=== PATIENT | male | born 1990 | race Caucasian/White ===

== ENCOUNTER 2017-08-12 23:39 | Inpatient (IN) | payer OTHER ==
[2017-08-13] MEDS ORDERED: ISOVUE-370 76% 100ML VIAL (Q9967) As Ordered (03:39)
[2017-08-13] MEDS: ONDANSETRON 4MG/2ML VIAL (J2405) IV ×3 (03:56→22:27)
[2017-08-13] MEDS: NS 1,000 ML IV (03:56)
[2017-08-13] MEDS: MORPHINE 4 MG/ML 1ML VIAL/SYRINGE (J2270) IV ×3 (03:56→21:15)
[2017-08-13 04:03] LABS: BASO % 0.1 % (0.0-1.0); HEMATOCRIT 48.2 % (42.0-52.0); HEMOGLOBIN 17.2 g/dl (13.5-17.5); IMMATURE GRANULOCYTE % 0.6 % (0-3.0); LYMPH # 1.1 10^3/uL (1.5-6.5); LYMPH % 5.6 % (24.0-44.0); MEAN CORPUSCULAR HGB CONC 35.7 g/dl (32.0-36.5); MONO # 0.6 10^3/uL (0.0-0.8); MONO % 3.2 % (0.0-5.0); NEUTROPHILS # 17.2 10^3/uL (1.8-7.7); NEUTROPHILS % 90.5 % (36.0-66.0); PLATELET COUNT, AUTOMATED 281 10^3/uL (150-450); RED BLOOD COUNT 5.54 10^6/uL (4.30-6.10); RED CELL DISTRIBUTION WIDTH 12.1 % (11.5-14.5)
[2017-08-13] MEDS: GASTROGRAFIN SOLUTION 30ML PO ×2 (04:17→04:50)
[2017-08-13 04:28] LABS: ALBUMIN 4.5 GM/DL (3.2-5.2); ALBUMIN/GLOBULIN RATIO 1.18 (1.00-1.93); ALKALINE PHOSPHATASE 105 U/L (45-117); ALT/SGPT 23 U/L (12-78); ANION GAP 8 MEQ/L (8-16); AST/SGOT 20 U/L (7-37); BILIRUBIN,DIRECT 0.3 MG/DL (0.0-0.2); BILIRUBIN,TOTAL 0.9 MG/DL (0.2-1.0); BLOOD UREA NITROGEN 12 MG/DL (7-18); CALCIUM LEVEL 9.3 MG/DL (8.5-10.1); CARBON DIOXIDE LEVEL 26 MEQ/L (21-32); CHLORIDE LEVEL 107 MEQ/L (98-107); GLOMERULAR FILTRATION RATE > 60.0 (>60); GLUCOSE, FASTING 136 MG/DL (70-100); LIPASE 165 U/L (73-393); SODIUM LEVEL 141 MEQ/L (136-145); TOTAL PROTEIN 8.3 GM/DL (6.4-8.2)
[2017-08-13] MEDS: PANTOPRAZOLE 40MG INJ (PROTONIX) (C9113) IV (09:24)
[2017-08-13] MEDS: LR 1,000 ML IV ×3 (09:25→23:57)
[2017-08-13] MEDS: KETOROLAC 30 MG/ML VIAL (J1885) IV ×3 (10:31→23:57)
[2017-08-13 17:07] LABS: BASO % 0.2 % (0.0-1.0); EOS % 0.2 % (0.0-3.0); HEMATOCRIT 43.2 % (42.0-52.0); IMMATURE GRANULOCYTE % 0.3 % (0-3.0); LYMPH # 1.8 10^3/uL (1.5-6.5); LYMPH % 15.3 % (24.0-44.0); MEAN CORPUSCULAR HGB CONC 35.2 g/dl (32.0-36.5); MEAN CORPUSCULAR VOLUME 88.2 fl (80.0-96.0); MONO # 1.5 10^3/uL (0.0-0.8); MONO % 12.8 % (0.0-5.0); NEUTROPHILS # 8.3 10^3/uL (1.8-7.7); NEUTROPHILS % 71.2 % (36.0-66.0); PLATELET COUNT, AUTOMATED 218 10^3/uL (150-450); RED CELL DISTRIBUTION WIDTH 12.1 % (11.5-14.5); WHITE BLOOD COUNT 11.6 10^3/uL (4.0-10.0)
[2017-08-13 17:22] LABS: HEMOGLOBIN 15.2 g/dl (13.5-17.5)
[2017-08-14] MEDS: ONDANSETRON 4MG/2ML VIAL (J2405) IV ×2 (04:42→10:47)
[2017-08-14] MEDS: KETOROLAC 30 MG/ML VIAL (J1885) IV ×3 (06:12→23:28)
[2017-08-14] MEDS: PANTOPRAZOLE 40MG INJ (PROTONIX) (C9113) IV (08:53)
[2017-08-14] MEDS: LR 1,000 ML IV ×3 (08:53→18:30)
[2017-08-14] MEDS: MORPHINE 4 MG/ML 1ML VIAL/SYRINGE (J2270) IV ×2 (10:48→14:53)
[2017-08-14] MEDS ORDERED: BUPIVACAINE HCL 0.25% 30 ML VIAL As Ordered (14:52)
[2017-08-14] MEDS ORDERED: GLYCOPYRROLATE INJ 0.2 MG/ML 2 ML VIAL As Ordered (15:54)
[2017-08-14] MEDS ORDERED: ROCURONIUM BROMIDE 50 MG/5 ML VIAL As Ordered ×2 (15:54→17:23)
[2017-08-14] MEDS ORDERED: LIDOCAINE 2% INJ 100 MG/5 ML SDV (FOR ANES.) As Ordered (15:55)
[2017-08-14] MEDS ORDERED: LIDOCAINE 2% JELLY 30 ML As Ordered (15:55)
[2017-08-14] MEDS ORDERED: PROPOFOL 200 MG/20 ML VIAL As Ordered (15:55)
[2017-08-14] MEDS ORDERED: KETOROLAC 60 MG/2 ML VIAL (J1885) As Ordered (15:55)
[2017-08-14] MEDS ORDERED: MIDAZOLAM INJ 2 MG/2 ML VIAL (J2250) As Ordered ×2 (15:55→18:16)
[2017-08-14] MEDS ORDERED: NEOSTIGMINE 10 MG/10 ML VIAL (J2710) As Ordered (15:55)
[2017-08-14] MEDS ORDERED: fentaNYL 100 MCG/2 ML INJECTION (J3010) As Ordered (15:55)
[2017-08-14] MEDS ORDERED: ONDANSETRON 4MG/2ML VIAL (J2405) As Ordered (15:55)
[2017-08-14] MEDS ORDERED: dexameTHASONE 4 MG/ML 1ML VIAL (J1100) As Ordered (15:55)
[2017-08-14] MEDS ORDERED: PHENYLephrine HCL 500 MCG/5 ML (100MCG/ML) SYRINGE (J2370) As Ordered (15:56)
[2017-08-14] MEDS ORDERED: PHENYLEPHRINE INJ 10MG/ML VIAL (J2370) As Ordered (15:56)
[2017-08-14] MEDS: cefoTEtan INJ 2GM VIAL (S0074 PER 500MG) As Ordered (17:00)
[2017-08-14] MEDS ORDERED: MORPHINE 10 MG/ML 1ML VIAL (J2270) IV (18:30)
[2017-08-14] MEDS ORDERED: ONDANSETRON 4MG/2ML VIAL (J2405) IV (18:30)
[2017-08-14] MEDS ORDERED: fentaNYL 100 MCG/2 ML INJECTION (J3010) IV (18:30)
[2017-08-14] MEDS: ACETAMINOPHEN TAB 650MG DOSE (2X325MG) PO (21:03)
[2017-08-15] MEDS: LR 1,000 ML IV ×3 (01:10→17:11)
[2017-08-15] MEDS: KETOROLAC 30 MG/ML VIAL (J1885) IV ×3 (06:21→22:14)
[2017-08-15 06:41] LABS: HEMATOCRIT 38.8 % (42.0-52.0); MEAN CORPUSCULAR HGB CONC 36.1 g/dl (32.0-36.5); PLATELET COUNT, AUTOMATED 179 10^3/uL (150-450); RED BLOOD COUNT 4.51 10^6/uL (4.30-6.10); RED CELL DISTRIBUTION WIDTH 11.6 % (11.5-14.5)
[2017-08-15 06:42] LABS: ADD MANUAL DIFFER YES; DIFF SLIDE NUMBER 91; POSITIVE MORPH POS FLAG
[2017-08-15 06:58] LABS: ANION GAP 6 MEQ/L (8-16); BLOOD UREA NITROGEN 16 MG/DL (7-18); CALCIUM LEVEL 8.1 MG/DL (8.5-10.1); CARBON DIOXIDE LEVEL 29 MEQ/L (21-32); CHLORIDE LEVEL 104 MEQ/L (98-107); CREATININE FOR GFR 1.07 MG/DL (0.70-1.30); GLOMERULAR FILTRATION RATE > 60.0 (>60); GLUCOSE, FASTING 99 MG/DL (70-100); POTASSIUM SERUM 3.7 MEQ/L (3.5-5.1); SODIUM LEVEL 139 MEQ/L (136-145)
[2017-08-15 07:14] LABS: BANDS 3 % (< 11); LYMPHOCYTES 40 % (16-52); METAMYELOCYTES 3 % (0-0); MONOCYTES 13 % (0-8); NEUTROPHILS 41 % (35-75); PLATELET ESTIMATE NORMAL (NORMAL)
[2017-08-15] MEDS: ACETAMINOPHEN TAB 650MG DOSE (2X325MG) PO ×2 (08:06→17:57)
[2017-08-15] MEDS: PANTOPRAZOLE 40MG INJ (PROTONIX) (C9113) IV (08:06)
[2017-08-16] MEDS: LR 1,000 ML IV ×3 (01:10→17:10)
[2017-08-16] MEDS: PANTOPRAZOLE 40MG INJ (PROTONIX) (C9113) IV (07:46)
[2017-08-16] MEDS: KETOROLAC 30 MG/ML VIAL (J1885) IV ×2 (07:46→15:00)
[2017-08-16 10:06] LABS: HEMATOCRIT 38.5 % (42.0-52.0); MEAN CORPUSCULAR HEMOGLOBIN 31.1 pg (27.0-33.0); MEAN CORPUSCULAR HGB CONC 36.4 g/dl (32.0-36.5); MEAN CORPUSCULAR VOLUME 85.6 fl (80.0-96.0); PLATELET COUNT, AUTOMATED 187 10^3/uL (150-450); RED CELL DISTRIBUTION WIDTH 11.5 % (11.5-14.5); WHITE BLOOD COUNT 6.2 10^3/uL (4.0-10.0)
[2017-08-16 10:28] LABS: ANION GAP 8 MEQ/L (8-16); BLOOD UREA NITROGEN 14 MG/DL (7-18); CALCIUM LEVEL 7.9 MG/DL (8.5-10.1); CARBON DIOXIDE LEVEL 28 MEQ/L (21-32); CHLORIDE LEVEL 105 MEQ/L (98-107); CREATININE FOR GFR 0.93 MG/DL (0.70-1.30); GLOMERULAR FILTRATION RATE > 60.0 (>60); GLUCOSE, FASTING 83 MG/DL (70-100); POTASSIUM SERUM 3.5 MEQ/L (3.5-5.1); SODIUM LEVEL 141 MEQ/L (136-145)
[2017-08-16] MEDS ORDERED: SLF 3 ML SYR IV (17:15)
[2017-08-16] MEDS: SLF 3 ML SYR IV (21:53)
[2017-08-17] MEDS: SLF 3 ML SYR IV ×3 (06:40→21:00)
[2017-08-17] MEDS: PANTOPRAZOLE 40MG INJ (PROTONIX) (C9113) IV (08:15)
[2017-08-18] MEDS: SLF 3 ML SYR IV (05:57)
== END 2017-08-18 11:30 | disposition home or self-care (01) | DRG 337 ==
LOC: M ED 23:39 → M ED INP 08-13 09:10 → M PED 08-13 12:06
PROC: 0DN84ZZ Release Small Intestine, Percutaneous Endoscopic Approach (ICD-10-PCS; principal; 2017-08-14 12:41)
DX: K56.51 Intestinal adhesions [bands], with partial obstruction (principal); R50.82 Postprocedural fever; Z98.0 Intestinal bypass and anastomosis status